=== PATIENT | female | born 1945 | race Asian ===

== ENCOUNTER 2019-09-21 14:25 | Emergency (ER) | payer OTHER ==
[~2019-09-21] VITALS: Ht 154.9 cm; Wt 95.3 kg
[2019-09-21 14:25] VITALS: BP 135/72; TEMP 98
[~2019-09-21 14:25] MED LIST: ALPH-E-MIXED400 UNIT PO; AMLO2.5T PO; ARTIFICIAL TEAR1 OP; ASCO500T18 PO; BISACODYL5 M1 PO; CELEXA10 MG PO; DEXTLIQ63 PO; DIPH50IN INJ; DIVA125C OR; DIVA125C PO; DULCOLAX5 MG PO; FISH OIL500 M1 OR; FISH OIL500 M1 PO; HALO50IN4 IM; HALO5INJ3 IM; LIPITOR10 MG PO; LORA2INJ21 INJ; METO50TA27 PO; MIRTAZAPINE7.5 MG PO; MULTI VITAMIN D1 TAB PO; PEPCID40 MG OR; PEPCID40 MG PO; RISP50IN IM; ZYPREXA ZYDI10 MG OR; ZYPREXA ZYDI10 MG PO; ZYPREXA ZYDI15 MG PO
[2019-09-21] MEDS ORDERED: HALO5INJ3 IM (17:29)
[2019-09-21] MEDS ORDERED: HALO50IN4 IM (17:34)
[2019-09-21] MEDS ORDERED: MIRALAX3350 N1 PO (17:35)
[2019-09-21] MEDS ORDERED: [UNRECOGNIZED DRUG - OTHER] (17:51)
== END 2019-09-21 15:00 | disposition other institution (70) ==
LOC: ED 14:36
DX: F20.89 Other schizophrenia (principal); R44.2 Other hallucinations; F22 Delusional disorders; Z04.6 Encounter for general psychiatric examination, requested by authority
CPT/HCPCS: 99283; 99285